=== PATIENT | female | born 1965 | race Caucasian/White ===

== ENCOUNTER 2018-01-18 02:39 | Emergency (ER) | payer OTHER ==
[~2018-01-18] VITALS: Ht 167.6 cm; Wt 72.6 kg
[~2018-01-18 02:39] MED LIST: CEFDINIR300 MG; DARVOCET-N 1001 EACH PO; MEDROLDOSEPACK PO; NOHOMEMEDICATIONS; NORCO 5-325 TA1 EACH PO; PERCOCET 5-3251 EACH PO; PRILOSEC40 MG; PROAIR HFA8.5 GM; REGLAN 10 MG TA10 M1 PO
[2018-01-18] MEDS ORDERED: NOHOMEMEDICATIONS (02:53)
[2018-01-18] MEDS ORDERED: HYDROCODON-ACE1 EAC8 PO (06:18)
[2018-01-18 06:39] VITALS: BP 117/78
== END 2018-01-18 06:45 | disposition home or self-care (01) ==
LOC: M.ERS 02:39
DX: T26.91XA Corrosion of right eye and adnexa, part unspecified, initial encounter (principal); F17.210 Nicotine dependence, cigarettes, uncomplicated; Z88.1 Allergy status to other antibiotic agents; Z91.040 Latex allergy status; Y93.89 Activity, other specified; Y92.89 Other specified places as the place of occurrence of the external cause; Y99.8 Other external cause status